=== PATIENT | male | born 1945 | race Caucasian/White ===

== ENCOUNTER → 2018-02-04 15:28 | Outpatient (CLI) | payer MEDICARE, OTHER, SELFPAY | PROVIDERS: PCP Internal Medicine; Visit Provider Family Medicine Sports Medicine | DX: R53.83 Other fatigue (principal); M62.50 Muscle wasting and atrophy, not elsewhere classified, unspecified site | CPT/HCPCS: 36415; 84403 ==

== ENCOUNTER → 2018-12-23 09:14 | Outpatient (CLI) | payer MEDICARE, OTHER, SELFPAY ==
[2018-12-23 11:12] LABS: Alanine Aminotransferase 37 IU/L (21-72); Aspartate Aminotransferase 41 IU/L (17-59); BUN Creatinine Ratio 23.6 (6-22); Blood Urea Nitrogen 26 mg/dL (9-20); Calcium 9.8 mg/dL (8.4-10.2); Carbon Dioxide 28 mmol/L (22-32); Chloride 101 mmol/L (98-107); Cholesterol 193 mg/dL (140-199); Estimated Glomerular Filt Rate > 60.0 mL/min (>60); Glucose 106 mg/dL (80-110); HDL Cholesterol 80 mg/dL (40-60); HEMOLYSIS < 15 (0-50); LDL Cholesterol Calculated 102 mg/dL (<100); Potassium 4.4 mmol/L (3.4-5.1); Sodium 140 mmol/L (137-145); Triglycerides 53 mg/dL (35-150)
== END ==
PROVIDERS: PCP Internal Medicine; Visit Provider Internal Medicine
DX: I10 Essential (primary) hypertension (principal); E78.00 Pure hypercholesterolemia, unspecified
CPT/HCPCS: 36415; 80048; 80061; 84450; 84460

== ENCOUNTER → 2019-03-04 08:00 | Outpatient (CLI) | payer MEDICARE, OTHER, SELFPAY ==
--- NOTE | 2019-03-04 | DI.MRI.S_ITS ---
PROCEDURE: MR CERVICAL SPINE WO CON INDICATIONS: Neck pain radiating into left scapula TECHNIQUE: Noncontrast sagittal T1 spin echo and T2 fast spin echo, sagittal STIR, foraminal oblique sagittal T2 fast spin echo, and axial gradient echo or T2 fast spin echo through the cervical spine. COMPARISON: None. FINDINGS: Image quality: Diagnostic, with note made of motion artifact. Alignment and Curvature: There is overall mild straightening of the normal cervical lordosis. Bone Marrow: Marrow demonstrates normal overall signal. Spinal Cord: Visualized spinal cord has normal size and signal. No cerebellar tonsillar herniation. Paraspinous Soft Tissues: No paravertebral masses. Prevertebral soft tissues are normal in thickness. C2-C3: Mild loss of disc height is seen. Loss of disc signal is seen. A mild degree of generalized disc osteophyte complex is seen. There is mild to moderate right-sided and mild left-sided facet hypertrophy seen. There is moderate right-sided and mild to moderate left-sided neural foraminal narrowing seen. No significant central canal narrowing is seen. C3-C4: Mild loss of disc height is seen. Loss of disc signal is seen. Moderate generalized disc osteophyte complex is seen. There is a central/right disc osteophyte protrusion seen. At least moderate facet hypertrophy is seen, left worse than right. There is moderate to severe bilateral neural foraminal narrowing seen at this level. Moderate to severe central canal narrowing is seen, with associated mass effect upon the ventral spinal cord. C4-C5: The disc height is well-preserved. Loss of disc signal is seen at this level. Moderate disc osteophyte complex is seen, which is eccentric to the left. There is moderate left-sided and moderate right-sided facet hypertrophy seen. There is at least moderate right-sided and moderate to severe left-sided neural foraminal narrowing seen. Moderate central canal narrowing is seen, with associated minimal mass effect upon the ventral spinal cord. C5-C6: Moderate to severe loss of disc height and disc signal are seen. Moderate to prominent disc osteophyte complex is seen. Bridging endplate osteophytes are seen. Uncovertebral joint hypertrophy is seen at this level. Posteriorly projected endplate osteophytes are seen. Moderate facet joint hypertrophy is seen. Moderate to severe bilateral neural foraminal narrowing is seen, left worse than right. Moderate to severe central canal narrowing is seen, with associated mass effect upon the ventral spinal cord. C6-C7: Moderate to severe loss of disc height and disc signal are seen. There is at least moderate disc osteophyte complex seen. Uncovertebral joint hypertrophy is seen at this level. There is moderate right-sided and mild to moderate left-sided facet hypertrophy seen. Moderate to severe bilateral neural foraminal narrowing can be seen at this level. There is moderate to severe central canal narrowing seen, with associated mass effect upon the ventral spinal cord. C7-T1: Moderate loss of disc height is seen. Loss of disc signal is seen. A mild degree of generalized disc osteophyte complex is seen. Rvlo-vh-[id number] facet hypertrophy is seen. There is moderate left-sided and mild to moderate right-sided neural foraminal narrowing seen. Gzpo-ap-[id number] central canal narrowing is seen. IMPRESSION: Multiple levels of cervical spine degenerative change are seen, which are most prominent at C5-C6 and C6-C7. Dictated by: Kyle Gonsalves M.D. on 03/04/2019 at 8:46 Approved by: Kyle Gonsalves M.D. on 03/04/2019 at 8:51
== END ==
PROVIDERS: PCP Internal Medicine; Visit Provider Physical Medicine & Rehabilitation
DX: M47.22 Other spondylosis with radiculopathy, cervical region (principal)
CPT/HCPCS: 72141

== ENCOUNTER → 2019-10-15 15:25 | Outpatient (ROUT) | payer MEDICARE, OTHER, SELFPAY ==
[2019-10-15 15:54] LABS: Alanine Aminotransferase 27 IU/L (<50); Albumin 4.6 g/dL (3.5-5.0); Albumin Globulin Ratio 1.8 (1.0-2.8); Alkaline Phosphatase 76 U/L (38-126); Aspartate Aminotransferase 43 IU/L (17-59); Bilirubin Total 0.6 mg/dL (0.2-1.3); Blood Urea Nitrogen 22 mg/dL (9-20); Calcium 9.8 mg/dL (8.4-10.2); Carbon Dioxide 26 mmol/L (22-32); Chloride 104 mmol/L (98-107); Cholesterol 198 mg/dL (140-199); Estimated Glomerular Filt Rate > 60.0 mL/min (>60); Globulin 2.5 g/dL (1.7-4.1); Glucose 87 mg/dL (80-110); HDL Cholesterol 70 mg/dL (40-60); HEMOLYSIS < 15 (0-50); LDL Cholesterol Calculated 100 mg/dL (<100); Potassium 4.3 mmol/L (3.4-5.1); Sodium 138 mmol/L (137-145); Total Protein 7.1 g/dL (6.3-8.2); Triglycerides 138 mg/dL (35-150)
[2019-10-16 06:36] LABS: PSA Free % 21.5 % (.); PSA, Total 2.6 ng/mL (0.0-4.0)
== END ==
PROVIDERS: PCP Internal Medicine; Visit Provider Internal Medicine
DX: Z12.5 Encounter for screening for malignant neoplasm of prostate (principal); E78.5 Hyperlipidemia, unspecified; I10 Essential (primary) hypertension
CPT/HCPCS: 80053; 80061; 84153; 84154

== ENCOUNTER → 2020-04-26 08:56 | Outpatient (CLI) | payer MEDICARE, OTHER, SELFPAY ==
[2020-04-26 10:47] LABS: Alanine Aminotransferase 20 IU/L (<50); Albumin 4.3 g/dL (3.5-5.0); Albumin Globulin Ratio 1.8 (1.0-2.8); Alkaline Phosphatase 69 U/L (38-126); Aspartate Aminotransferase 29 IU/L (17-59); BUN Creatinine Ratio 18.2 (6-22); Bilirubin Total 0.8 mg/dL (0.2-1.3); Blood Urea Nitrogen 20 mg/dL (9-20); Calcium 9.7 mg/dL (8.4-10.2); Carbon Dioxide 32 mmol/L (22-32); Chloride 103 mmol/L (98-107); Cholesterol 174 mg/dL (140-199); Estimated Glomerular Filt Rate > 60.0 mL/min (>60); Globulin 2.4 g/dL (1.7-4.1); Glucose 94 mg/dL (80-110); HDL Cholesterol 72 mg/dL (40-60); HEMOLYSIS < 15 (0-50); LDL Cholesterol Calculated 85 mg/dL (<100); Potassium 4.9 mmol/L (3.4-5.1); Sodium 138 mmol/L (137-145); Total Protein 6.7 g/dL (6.3-8.2); Triglycerides 84 mg/dL (35-150)
[2020-04-26 11:17] LABS: Prostate Specific Antigen Scrn 3.64 ng/mL (0.1-4.0)
== END ==
PROVIDERS: PCP Family Medicine; Referring Provider Family Medicine; Visit Provider Family Medicine
DX: Z00.00 Encounter for general adult medical examination without abnormal findings (principal); Z12.5 Encounter for screening for malignant neoplasm of prostate; Z13.220 Encounter for screening for lipoid disorders; Z13.228 Encounter for screening for other metabolic disorders; E78.5 Hyperlipidemia, unspecified; I10 Essential (primary) hypertension; N40.0 Benign prostatic hyperplasia without lower urinary tract symptoms
CPT/HCPCS: 36415; 80053; 80061; G0103

== ENCOUNTER → 2021-02-22 09:07 | Outpatient (CLI) | payer MEDICARE, OTHER, SELFPAY ==
[2021-02-22 10:28] LABS: Alanine Aminotransferase 26 IU/L (<50); Albumin 4.6 g/dL (3.5-5.0); Albumin Globulin Ratio 1.7 (1.0-2.8); Alkaline Phosphatase 65 U/L (38-126); Aspartate Aminotransferase 39 IU/L (17-59); BUN Creatinine Ratio 19.7 (6-22); Bilirubin Total 0.7 mg/dL (0.2-1.3); Blood Urea Nitrogen 23 mg/dL (9-20); Calcium 9.5 mg/dL (8.4-10.2); Carbon Dioxide 28 mmol/L (22-32); Chloride 102 mmol/L (98-107); Estimated Glomerular Filt Rate > 60.0 mL/min (>60); Globulin 2.7 g/dL (1.7-4.1); Glucose 95 mg/dL (80-110); HEMOLYSIS < 15 (0-50); Potassium 4.3 mmol/L (3.4-5.1); Sodium 138 mmol/L (137-145); Total Protein 7.3 g/dL (6.3-8.2)
== END ==
PROVIDERS: PCP Family Medicine; Referring Provider Family Medicine; Visit Provider Family Medicine
DX: I10 Essential (primary) hypertension (principal)
CPT/HCPCS: 36415; 80053

== ENCOUNTER → 2022-03-22 09:41 | Outpatient (CLI) | payer MEDICARE, OTHER, SELFPAY ==
[2022-03-22 10:36] LABS: Add Manual Diff / Slide Review NO; Basophils Absolute Auto 0 /uL (0-100); Basophils Percent Auto 0.9 % (0-2); Eosinophils Absolute Auto 100 /uL (0-450); Eosinophils Percent Auto 2.5 % (2-4); Hematocrit 37.9 % (41-53); Hemoglobin 13.1 g/dL (13.5-17.5); Lymphocytes Absolute Auto 1000 /uL (1100-4500); Lymphocytes Percent Auto 20.6 % (25-40); Mean Corpuscular HGB Conc 34.4 % (30-36); Mean Corpuscular Hemoglobin 32.8 PG (26-34); Mean Corpuscular Volume 95.2 fL (80-100); Monocytes Absolute Auto 500 /uL (0-900); Monocytes Percent Auto 9.8 % (3-14); Neutrophils Absolute Auto 3200 /uL (1500-7000); Neutrophils Percent Auto 66.2 % (50-75); Platelet Count 237 X10^3/uL (150-400); Red Blood Cell Count 3.98 X10^6/uL (4.5-5.9); White Blood Cell Count 4.8 X10^3/uL (4.5-11.0)
[2022-03-22 10:51] LABS: Hemoglobin A1C% w Est Avg Glu 5.4 % (4.0-6.0)
[2022-03-22 11:10] LABS: Alanine Aminotransferase 27 IU/L (<50); Albumin 4.3 g/dL (3.5-5.0); Albumin Globulin Ratio 1.4 (1.0-2.8); Alkaline Phosphatase 59 U/L (38-126); Aspartate Aminotransferase 30 IU/L (17-59); BUN Creatinine Ratio 15.9 (6-22); Bilirubin Total 0.4 mg/dL (0.2-1.3); Blood Urea Nitrogen 17 mg/dL (9-20); Calcium 8.9 mg/dL (8.4-10.2); Carbon Dioxide 25 mmol/L (22-32); Chloride 105 mmol/L (98-107); Cholesterol 172 mg/dL (140-199); Estimated Glomerular Filt Rate > 60 mL/min (>60); Glucose 98 mg/dL (80-110); HDL Cholesterol 61 mg/dL (40-60); HEMOLYSIS < 15 (0-50); LDL Cholesterol Calculated 101 mg/dL (<100); Potassium 4.2 mmol/L (3.4-5.1); Sodium 139 mmol/L (137-145); Total Protein 7.3 g/dL (6.3-8.2); Triglycerides 51 mg/dL (35-150)
[2022-03-22 11:26] LABS: TSH w/ Reflex to FT4 4.76 uIU/mL (0.47-4.68)
[2022-03-22 12:04] LABS: Free T4, Direct Thyroxine 0.97 ng/dL (0.78-2.19)
== END ==
PROVIDERS: PCP Family Medicine; Referring Provider Family Medicine; Visit Provider Family Medicine
DX: E78.2 Mixed hyperlipidemia (principal); Z13.9 Encounter for screening, unspecified; I10 Essential (primary) hypertension; N40.0 Benign prostatic hyperplasia without lower urinary tract symptoms; Z00.00 Encounter for general adult medical examination without abnormal findings
CPT/HCPCS: 36415; 80053; 80061; 83036; 84439; 84443; 85025

== ENCOUNTER → 2022-11-06 08:14 | Outpatient (CLI) | payer MEDICARE, OTHER, SELFPAY ==
[2022-11-06 09:04] LABS: Add Manual Diff / Slide Review NO; Basophils Absolute Auto 100 /uL (0-100); Eosinophils Absolute Auto 200 /uL (0-450); Eosinophils Percent Auto 3.1 % (2-4); Hematocrit 38.7 % (41-53); Hemoglobin 13.4 g/dL (13.5-17.5); Lymphocytes Absolute Auto 1300 /uL (1100-4500); Lymphocytes Percent Auto 24.6 % (25-40); Mean Corpuscular HGB Conc 34.7 % (30-36); Mean Corpuscular Hemoglobin 33.6 PG (26-34); Mean Corpuscular Volume 96.8 fL (80-100); Monocytes Absolute Auto 700 /uL (0-900); Neutrophils Absolute Auto 3100 /uL (1500-7000); Neutrophils Percent Auto 58.3 % (50-75); Platelet Count 256 X10^3/uL (150-400); Red Cell Distribution Width 12.9 % (11.6-14.8); White Blood Cell Count 5.4 X10^3/uL (4.5-11.0)
[2022-11-06 09:12] LABS: Alanine Aminotransferase 29 IU/L (<50); Albumin 4.3 g/dL (3.5-5.0); Albumin Globulin Ratio 1.7 (1.0-2.8); Alkaline Phosphatase 68 U/L (38-126); Aspartate Aminotransferase 36 IU/L (17-59); BUN Creatinine Ratio 22.5 (6-22); Bilirubin Total 0.4 mg/dL (0.2-1.3); Blood Urea Nitrogen 27 mg/dL (9-20); Calcium 9.2 mg/dL (8.4-10.2); Carbon Dioxide 25 mmol/L (22-32); Chloride 103 mmol/L (98-107); Cholesterol 180 mg/dL (140-199); Estimated Glomerular Filt Rate > 60 mL/min (>60); Globulin 2.6 g/dL (1.7-4.1); Glucose 115 mg/dL (80-110); HDL Cholesterol 60 mg/dL (40-60); HEMOLYSIS < 15 (0-50); LDL Cholesterol Calculated 104 mg/dL (<100); Potassium 4.7 mmol/L (3.4-5.1); Sodium 137 mmol/L (137-145); Total Protein 6.9 g/dL (6.3-8.2); Triglycerides 80 mg/dL (35-150)
[2022-11-06 09:22] LABS: Free T4, Direct Thyroxine 1.08 ng/dL (0.78-2.19)
[2022-11-06 09:36] LABS: Thyroid Stimulating Hormone 2.06 uIU/mL (0.47-4.68)
== END ==
PROVIDERS: PCP Family Medicine; Referring Provider Family Medicine; Visit Provider Family Medicine
DX: E03.9 Hypothyroidism, unspecified (principal); E78.5 Hyperlipidemia, unspecified; I10 Essential (primary) hypertension; N40.0 Benign prostatic hyperplasia without lower urinary tract symptoms
CPT/HCPCS: 36415; 80053; 80061; 84439; 84443; 85025

== ENCOUNTER → 2022-11-27 09:28 | Outpatient (CLI) | payer MEDICARE, OTHER, SELFPAY ==
[2022-11-27 10:58] LABS: Reticulocyte Count, Percent 0.8 % (0.9-2.6)
[2022-11-27 11:12] LABS: Hemoglobin A1C% w Est Avg Glu 5.1 % (4.0-6.0)
[2022-11-27 11:31] LABS: HEMOLYSIS < 15 (0-50); Iron 86 ug/dL (49-181)
[2022-11-27 11:42] LABS: Percent Iron Saturation 26 % (20-50); Total Iron Binding Capacity 328 ug/dL (261-462); Transferrin 245 mg/dL (206-381)
[2022-11-27 12:10] LABS: Vitamin B12 556 pg/mL (239-931)
[2022-11-29 07:36] LABS: Fructosamine 231 umol/L (0-285)
[2022-12-02 12:46] LABS: Percent Free Testosterone 2.07 % (1.50-4.20); Testosterone Free 9.65 ng/dL (5.00-21.00); Testosterone Total 466.1 ng/dL (264.0-916.0)
== END ==
PROVIDERS: PCP Family Medicine; Referring Provider Family Medicine; Visit Provider Family Medicine
DX: R73.03 Prediabetes (principal); E03.9 Hypothyroidism, unspecified; E78.5 Hyperlipidemia, unspecified; I10 Essential (primary) hypertension; N40.0 Benign prostatic hyperplasia without lower urinary tract symptoms; R53.83 Other fatigue
CPT/HCPCS: 36415; 82607; 82985; 83036; 83540; 83550; 84402; 84403; 85045

== ENCOUNTER → 2023-04-26 09:00 | Outpatient (CLI) | payer MEDICARE, OTHER, SELFPAY ==
[2023-04-26 10:19] LABS: Add Manual Diff / Slide Review NO; Basophils Absolute Auto 100 /uL (0-100); Basophils Percent Auto 1.3 % (0-2); Eosinophils Absolute Auto 100 /uL (0-450); Eosinophils Percent Auto 2.7 % (2-4); Hematocrit 36.8 % (41-53); Hemoglobin 12.3 g/dL (13.5-17.5); Lymphocytes Absolute Auto 1100 /uL (1100-4500); Mean Corpuscular HGB Conc 33.3 % (30-36); Mean Corpuscular Hemoglobin 31.3 PG (26-34); Mean Corpuscular Volume 94.1 fL (80-100); Monocytes Absolute Auto 600 /uL (0-900); Monocytes Percent Auto 11.8 % (3-14); Neutrophils Absolute Auto 3200 /uL (1500-7000); Neutrophils Percent Auto 62.2 % (50-75); Platelet Count 246 X10^3/uL (150-400); Red Blood Cell Count 3.91 X10^6/uL (4.5-5.9); Red Cell Distribution Width 15.1 % (11.6-14.8); White Blood Cell Count 5.1 X10^3/uL (4.5-11.0)
== END ==
PROVIDERS: PCP Family Medicine; Referring Provider Family Medicine; Visit Provider Family Medicine
DX: D64.9 Anemia, unspecified (principal)
CPT/HCPCS: 36415; 85025; 85045

== ENCOUNTER → 2023-07-23 10:34 | Outpatient (CLI) | payer MEDICARE, OTHER, SELFPAY ==
--- NOTE | 2023-07-23 10:43 | DI.MRI.S_ITS ---
PROCEDURE: MR LUMBAR SPINE WO CON INDICATIONS: Spinal stenosis, lumbar region without neurogenic TECHNIQUE: Noncontrast sagittal T1 spin echo and T2 fast echo, sagittal STIR, and T2 fast spin echo through the lumbar spine. In cases with scoliosis, additional coronal T2 fast spin echo may be performed. COMPARISON: [facility], MR, MR LUMBAR SPINE WITHOUT CONTRAST, 08/11/2021, 12:20. FINDINGS: Image quality: Excellent. Alignment and Curvature: 4 mm anterolisthesis of L3 on L4. 4 mm retrolisthesis of L5 on S1. Bone Marrow: Marrow is of normal overall signal. No acute vertebral body compression fractures. Spinal Cord: Conus medullaris terminates at the L1-L2 level. Visualized cord demonstrates normal signal and size. Paraspinous Soft Tissues: No paravertebral masses. T12-L1: No significant change. Disc bulge. No canal stenosis or foraminal stenosis. L1-L2: No significant change. Disc bulge. Mild facet hypertrophy. No canal stenosis or foraminal stenosis. L2-L3: Slight interval progression. Disc bulge. Increased facet hypertrophy with development of a small anterior medially directed facet joint cyst off the right facet which narrows the right lateral recess and deviates right-sided nerve root structures slightly. Reference axial T2 image 15 of series 5. No central canal stenosis. Mild right foraminal stenosis. L3-L4: Slight interval progression. Increased disc bulge/superimposed broad-based disc protrusion. Prominent facet hypertrophy. Posterior epidural lipomatosis. Anterolisthesis of L3 on L4. Severe canal stenosis. Reference axial T2 image 21 of series 5. Qfug-[id number] bilateral foraminal stenosis. L4-L5: Slight interval increase in disc bulge. Facet hypertrophy. Mild canal stenosis. Bilateral lateral recess stenosis. Dkjc-wb-[id number] right foraminal narrowing and moderate left foraminal narrowing with mild flattening deformity on the exiting left L4 nerve root. L5-S1: Stable findings. Severe disc height loss. Diffuse posterior disc post osteophyte. There is mild posterior deviation of the left S1 nerve root in the left lateral recess. Bilateral facet hypertrophy. No central canal stenosis. Moderate bilateral foraminal stenosis with flattening deformity on the exiting bilateral L5 nerve roots. IMPRESSION: 1. Underlying multilevel facet arthropathy. 2. There is interval progression at L2-L3 and L3-L4 and L4-L5. 3. Canal stenosis is severe at L3-L4 and mild at L4-L5. 4. A facet joint cyst off of the right facet at L2-L3 has developed, resulting in right lateral recess stenosis at that level. 5. Multilevel foraminal narrowing as described above. Findings include moderate left foraminal narrowing at L4-L5 and moderate bilateral foraminal narrowing at L5-S1. Dictated by: Darell Carcamo M.D. on 07/23/2023 at 12:38 Approved by: Darell Carcamo M.D. on 07/23/2023 at 12:56
== END ==
LOC: MRI 10:35
PROVIDERS: PCP Family Medicine; Referring Provider Student in an Organized Health Care Education/Training Program; Visit Provider Student in an Organized Health Care Education/Training Program
DX: S33.5XXA Sprain of ligaments of lumbar spine, initial encounter (principal); M48.061 Spinal stenosis, lumbar region without neurogenic claudication; M48.07 Spinal stenosis, lumbosacral region; M47.816 Spondylosis without myelopathy or radiculopathy, lumbar region; M47.817 Spondylosis without myelopathy or radiculopathy, lumbosacral region; M53.86 Other specified dorsopathies, lumbar region; X58.XXXA Exposure to other specified factors, initial encounter
CPT/HCPCS: 72148

== ENCOUNTER → 2023-08-09 09:10 | Outpatient (CLI) | payer MEDICARE, OTHER, SELFPAY ==
--- NOTE | 2023-08-09 | DI.RAD.S_ITS ---
PROCEDURE: XR LUMBAR SPINE MIN 4V INDICATIONS: LOW BACK PAIN TECHNIQUE: 5 views of the lumbar spine acquired, including flexion and extension views. COMPARISON: None. FINDINGS: Bones: 5 nonrib-bearing vertebrae are present. Grade 1 anterolisthesis of L3 on L4. Straightening of the normal lumbar lordosis. There is multilevel facet arthropathy, worse at L4-5 and L5-S1. Multilevel disc height loss with degenerative endplate changes and spurring is present. This is most pronounced at L5-S1. No vertebral body compression fractures. No suspicious bony lesions. Soft tissues: Overlying bowel gas pattern is normal. No suspicious soft tissue calcifications. Atherosclerotic vascular calcifications. Flexion/extension: There is limited range of motion, with preserved alignment. IMPRESSION: Multilevel degenerative changes of the lumbar spine with limited range of motion. Dictated by: Bethel Hall M.D. on 08/09/2023 at 10:38 Approved by: Bethel Hall M.D. on 08/09/2023 at 10:39
--- NOTE | 2023-08-09 09:12 | DI.CT.S_ITS ---
PROCEDURE: CT LUMBAR SPINE WO CON INDICATIONS: Spinal stenosis, lumbar region TECHNIQUE: Noncontrast 3 mm thick sections acquired from the T12 level to the sacrum. Sagittal and coronal reformats were constructed. For radiation dose reduction, the following was used: automated exposure control. COMPARISON: [facility], MR, MR LUMBAR SPINE WO CON, 07/23/2023, 10:43. FINDINGS: Image quality: Excellent. Bones: Mild anterolisthesis of L3 on L4. Mild retrolisthesis of L5 on S1. There is multilevel facet arthropathy, worse at L4-5 and L5-S1. Multilevel disc height loss with degenerative endplate changes and spurring is present. This is most pronounced at L5-S1 with severe disc height loss and vacuum disc phenomena. Degenerative changes result in severe central canal stenosis at L3-L4. At least moderate bilateral osseous neural foraminal stenosis at L5-S1. No acute vertebral body compression fractures. No suspicious lytic or blastic bony lesions. No pars defects. Soft tissues: No retroperitoneal masses or hematomas. Visualized aorta is normal in caliber. Atherosclerotic vascular calcifications. Diverticulosis within the visualized colon without evidence of diverticulitis. IMPRESSION: Multilevel degenerative changes of the lumbar spine are redemonstrated. Severe central canal stenosis at L3-L4. At least moderate bilateral osseous neural foraminal stenosis at L5-S1. Dictated by: Bethel Hall M.D. on 08/09/2023 at 11:24 Approved by: Bethel Hall M.D. on 08/09/2023 at 11:29
== END ==
PROVIDERS: PCP Family Medicine; Referring Provider Neurological Surgery; Visit Provider Neurological Surgery
DX: M48.062 Spinal stenosis, lumbar region with neurogenic claudication (principal); M48.07 Spinal stenosis, lumbosacral region; M47.816 Spondylosis without myelopathy or radiculopathy, lumbar region; M47.817 Spondylosis without myelopathy or radiculopathy, lumbosacral region; K57.90 Diverticulosis of intestine, part unspecified, without perforation or abscess without bleeding; I70.90 Unspecified atherosclerosis
CPT/HCPCS: 72110; 72131

== ENCOUNTER → 2023-09-05 07:46 | Outpatient (CLI) | payer MEDICARE, OTHER, SELFPAY ==
[2023-09-05 08:59] LABS: Add Manual Diff / Slide Review NO; Basophils Absolute Auto 100 /uL (0-100); Basophils Percent Auto 1.3 % (0-2); Eosinophils Absolute Auto 200 /uL (0-450); Eosinophils Percent Auto 3.3 % (2-4); Hematocrit 37.5 % (41-53); Hemoglobin 12.9 g/dL (13.5-17.5); Lymphocytes Absolute Auto 1400 /uL (1100-4500); Lymphocytes Percent Auto 27.7 % (25-40); Mean Corpuscular HGB Conc 34.4 % (30-36); Mean Corpuscular Hemoglobin 33.1 PG (26-34); Mean Corpuscular Volume 96.2 fL (80-100); Monocytes Absolute Auto 500 /uL (0-900); Monocytes Percent Auto 10.3 % (3-14); Neutrophils Absolute Auto 2800 /uL (1500-7000); Neutrophils Percent Auto 57.4 % (50-75); Platelet Count 261 X10^3/uL (150-400); Red Cell Distribution Width 13.9 % (11.6-14.8); White Blood Cell Count 4.9 X10^3/uL (4.5-11.0)
[2023-09-05 09:00] LABS: Reticulocyte Count, Percent 0.7 % (0.9-2.6)
[2023-09-05 09:04] LABS: Appearance Urine UA CLEAR; Bilirubin Urine UA NEGATIVE (NEGATIVE); Color Urine UA YELLOW; Glucose Urine UA NEGATIVE (Negative); Ketones Urine UA TRACE (NEGATIVE); Leukocyte Esterase Urine UA NEGATIVE (NEGATIVE); Nitrite Urine UA NEGATIVE (Negative); Occult Blood Urine UA NEGATIVE (Negative); Protein Urine UA NEGATIVE (Negative); Urobilinogen Urine UA 0.2 E.U./dL (0.2); pH Urine UA 5.5 (4.5-8.0)
[2023-09-05 09:12] LABS: Bacteria Urine None Seen; Culture Indicated Urine Cult Not Indicated; RBC Urine None Seen (0-5/HPF); Squamous Epithelial Cell Urine None Seen (0-5/HPF); Urine Volume 10mL (spun); WBC Urine 0-1/HPF (0-5/HPF)
[2023-09-05 09:21] LABS: HEMOLYSIS < 15 (0-50); Iron 80 ug/dL (49-181)
[2023-09-05 09:35] LABS: Alanine Aminotransferase 35 IU/L (<50); Albumin 4.6 g/dL (3.5-5.0); Albumin Globulin Ratio 1.8 (1.0-2.8); Alkaline Phosphatase 60 U/L (38-126); Aspartate Aminotransferase 45 IU/L (17-59); BUN Creatinine Ratio 22.9 (6-22); Bilirubin Total 0.5 mg/dL (0.2-1.3); Blood Urea Nitrogen 24 mg/dL (9-20); Calcium 8.9 mg/dL (8.4-10.2); Carbon Dioxide 25 mmol/L (22-32); Chloride 105 mmol/L (98-107); Estimated Glomerular Filt Rate > 60 mL/min (>60); Globulin 2.5 g/dL (1.7-4.1); Glucose 95 mg/dL (80-110); HEMOLYSIS < 15 (0-50); Potassium 4.4 mmol/L (3.4-5.1); Sodium 137 mmol/L (137-145); Total Protein 7.1 g/dL (6.3-8.2)
[2023-09-05 09:36] LABS: Percent Iron Saturation 26 % (20-50); Total Iron Binding Capacity 313 ug/dL (261-462); Transferrin 243 mg/dL (206-381)
[2023-09-05 09:54] LABS: TSH w/ Reflex to FT4 2.22 uIU/mL (0.47-4.68)
[2023-09-05 10:26] LABS: INR 0.9 (0.9-1.3); Prothrombin Time 10.5 SECONDS (9.4-12.5)
[2023-09-05 10:29] LABS: PTT Partial Thromboplastin Tim 35 SECONDS (25.1-36.5)
[2023-09-05 10:39] LABS: Folate 14.5 ng/mL (2.76-20.0); Vitamin B12 372 pg/mL (239-931)
== END ==
PROVIDERS: PCP Family Medicine; Referring Provider Nurse Practitioner Critical Care Medicine; Visit Provider Nurse Practitioner Critical Care Medicine
DX: M48.062 Spinal stenosis, lumbar region with neurogenic claudication (principal); E03.9 Hypothyroidism, unspecified; N40.0 Benign prostatic hyperplasia without lower urinary tract symptoms; E78.5 Hyperlipidemia, unspecified; I10 Essential (primary) hypertension; D64.9 Anemia, unspecified
CPT/HCPCS: 36415; 80053; 81001; 82607; 82746; 83540; 83550; 84443; 85025; 85045; 85610; 85730; 86850; 86900; 86901

== ENCOUNTER → 2023-11-28 10:08 | Outpatient (CLI) | payer MEDICARE, OTHER, SELFPAY ==
--- NOTE | 2023-11-28 10:12 | DI.RAD.S_ITS ---
PROCEDURE: XR LUMBAR SPINE 2-3V INDICATIONS: LUMBAR PAIN/surgical aftercare TECHNIQUE: 3 views of the lumbar spine were acquired. COMPARISON: [facility], MR, MR LUMBAR SPINE WO CON, 07/23/2023, 10:43. [facility], CR, XR LUMBAR SPINE MIN 4V, 08/09/2023, 8:24. FINDINGS: Bones: 5 [id number]-[id number] vertebrae are present. Surgical changes of L3-L4 posterior lumbar fusion, partial laminectomy changes. And intervertebral spacer present; spacer is slightly oriented to the left of midline of questionable clinical significance. No perihardware lucency can be seen. No fracture or subluxation seen. Diffuse degenerative disc disease also noted. Soft tissues: Bowel gas pattern is unremarkable. Atherosclerotic calcifications of the aorta noted. Phleboliths project over the pelvis. IMPRESSION: Postop changes of the lumbar spine as noted above Dictated by: Carlos Alberto Wesley M.D. on 11/28/2023 at 15:04 Approved by: Carlos Alberto Wesley M.D. on 11/28/2023 at 15:14
== END ==
PROVIDERS: PCP Family Medicine
DX: M51.16 Intervertebral disc disorders with radiculopathy, lumbar region (principal); M48.062 Spinal stenosis, lumbar region with neurogenic claudication; Z48.811 Encounter for surgical aftercare following surgery on the nervous system; Z98.1 Arthrodesis status
CPT/HCPCS: 72100

== ENCOUNTER → 2023-11-29 10:49 | Outpatient (CLI) | payer MEDICARE, OTHER, SELFPAY | PROVIDERS: PCP Family Medicine; Referring Provider Nurse Practitioner Family; Visit Provider Nurse Practitioner Family | DX: Z86.19 Personal history of other infectious and parasitic diseases (principal) | CPT/HCPCS: 87045 ==

== ENCOUNTER → 2023-12-07 14:50 | Outpatient (CLI) | payer MEDICARE, OTHER, SELFPAY | LOC: LAB 14:51 | PROVIDERS: PCP Family Medicine; Referring Provider Nurse Practitioner Family; Visit Provider Nurse Practitioner Family | DX: R19.7 Diarrhea, unspecified (principal) | CPT/HCPCS: 87177 ==

== ENCOUNTER → 2024-02-14 08:55 | Outpatient (CLI) | payer MEDICARE, OTHER, SELFPAY | PROVIDERS: PCP Family Medicine; Referring Provider Urology; Visit Provider Urology | DX: N40.0 Benign prostatic hyperplasia without lower urinary tract symptoms (principal) | CPT/HCPCS: 36415; 84153 ==

== ENCOUNTER → 2024-04-17 11:18 | Outpatient (CLI) | payer MEDICARE, OTHER, SELFPAY | PROVIDERS: Physician Assistant; PCP Family Medicine; Referring Provider Family Medicine; Visit Provider Family Medicine | DX: R19.5 Other fecal abnormalities (principal) | CPT/HCPCS: 87177; 87329 ==

== ENCOUNTER → 2024-06-25 10:55 | Outpatient (CLI) | payer MEDICARE, OTHER, SELFPAY ==
[2024-06-25 12:08] LABS: Hematocrit 38.7 % (41-53); Mean Corpuscular HGB Conc 33.7 % (30-36); Mean Corpuscular Hemoglobin 32.2 PG (26-34); Mean Corpuscular Volume 95.4 fL (80-100); Platelet Count 259 X10^3/uL (150-400); Red Blood Cell Count 4.05 X10^6/uL (4.5-5.9); White Blood Cell Count 4.8 X10^3/uL (4.5-11.0)
[2024-06-25 12:15] LABS: Hemoglobin A1C% w Est Avg Glu 5.1 % (4.0-6.0)
[2024-06-25 12:38] LABS: HEMOLYSIS < 15 (0-50)
[2024-06-25 12:46] LABS: Alanine Aminotransferase 27 IU/L (<50); Albumin 4.5 g/dL (3.5-5.0); Albumin Globulin Ratio 1.6 (1.0-2.8); Alkaline Phosphatase 61 U/L (38-126); Aspartate Aminotransferase 47 IU/L (17-59); BUN Creatinine Ratio 17.1 (6-22); Bilirubin Total 0.6 mg/dL (0.2-1.3); Blood Urea Nitrogen 19 mg/dL (9-20); Calcium 9.5 mg/dL (8.4-10.2); Carbon Dioxide 26 mmol/L (22-32); Chloride 103 mmol/L (98-107); Cholesterol 164 mg/dL (140-199); Estimated Glomerular Filt Rate > 60 mL/min (>60); Globulin 2.8 g/dL (1.7-4.1); Glucose 100 mg/dL (80-110); HDL Cholesterol 60 mg/dL (40-60); HEMOLYSIS < 15 (0-50); Iron 97 ug/dL (49-181); LDL Cholesterol Calculated 81 mg/dL (<100); Potassium 4.2 mmol/L (3.4-5.1); Sodium 135 mmol/L (137-145); Total Protein 7.3 g/dL (6.3-8.2); Triglycerides 113 mg/dL (35-150)
[2024-06-25 12:57] LABS: Percent Iron Saturation 33 % (20-50); Total Iron Binding Capacity 298 ug/dL (261-462); Transferrin 246 mg/dL (206-381)
[2024-06-25 13:16] LABS: TSH w/ Reflex to FT4 2.13 uIU/mL (0.47-4.68)
[2024-06-25 13:17] LABS: Prostate Specific Antigen 5.29 ng/mL (0.10-4.00)
[2024-06-25 13:18] LABS: Ferritin 113 ng/mL (18-464)
[2024-06-25 13:33] LABS: Vitamin B12 Reflex MMA if <400 267 pg/mL (239-931)
[2024-06-28 15:36] LABS: Methylmalonic Acid,Serum 217 nmol/L (0-378)
[2024-06-28 16:08] LABS: C difficie Toxins A and B, EIA Negative (Negative)
== END ==
PROVIDERS: Physician Assistant; PCP Internal Medicine; Referring Provider Internal Medicine; Visit Provider Internal Medicine
DX: R97.20 Elevated prostate specific antigen [PSA] (principal); R73.01 Impaired fasting glucose; D64.9 Anemia, unspecified; E03.9 Hypothyroidism, unspecified; E78.2 Mixed hyperlipidemia; E53.8 Deficiency of other specified B group vitamins; K52.9 Noninfective gastroenteritis and colitis, unspecified
CPT/HCPCS: 36415; 80053; 80061; 82607; 82728; 83036; 83540; 83550; 83921; 84153; 84443; 85027; 87324

== ENCOUNTER → 2024-10-20 12:39 | Outpatient (CLI) | payer MEDICARE, OTHER, SELFPAY ==
[2024-10-20 14:16] LABS: Prostate Specific Antigen 6.49 ng/mL (0.10-4.00)
== END ==
PROVIDERS: PCP Internal Medicine; Referring Provider Urology; Visit Provider Urology
DX: C61 Malignant neoplasm of prostate (principal)
CPT/HCPCS: 36415; 84153

== ENCOUNTER → 2025-01-13 09:07 | Outpatient (CLI) | payer MEDICARE, OTHER, SELFPAY ==
[2025-01-13 10:58] LABS: Prostate Specific Antigen 6.93 ng/mL (0.10-4.00)
== END ==
PROVIDERS: PCP Internal Medicine; Referring Provider Urology; Visit Provider Urology
DX: C61 Malignant neoplasm of prostate (principal)
CPT/HCPCS: 36415; 84153

== ENCOUNTER → 2025-02-23 08:08 | Outpatient (CLI) | payer MEDICARE, OTHER, SELFPAY ==
--- NOTE | 2025-02-23 08:16 | DI.MRI.S_ITS ---
PROCEDURE: MR ELBOW LT W CON INDICATIONS: Chronic elbow pain, left TECHNIQUE: Noncontrast coronal proton density fast spin echo and T2 fast spin echo with fat saturation, axial and sagittal T1 spin echo and T2 fast spin echo with fat saturation through the elbow. COMPARISON: [facility], CR, XR ELBOW 3+ VIEWS LEFT, 01/22/2025, 7:51. FINDINGS: Quality: Adequate. Anterior: Biceps tendon: Intact. Bicipitoradial bursa: Nondistended. Median nerve: Unremarkable. Posterior: Triceps tendon: Metallic artifact at the anchor head obscures portions of the distal triceps tendon. Tendinosis of the distal triceps tendon. No retracted fibers. There is partial-thickness tearing of medial head fibers medially. Adjacent subcutaneous edema along the dorsal elbow. Olecranon bursa: Nondistended. Medial: Common flexor tendon origin: Small partial tear.. Ulnar collateral ligament: Intact. Ulnar nerve: Unremarkable. Lateral: Common extensor tendon: Large partial tear at the origin.. Radial collateral ligament: Partial tear of the proximal attachment. Lateral ulnar collateral ligament: Intact. Annular ligament: Intact. Joint: Small effusion. Cartilage: Cartilage loss and osteophyte formation at the medial ulnar trochlear articulation with associated volar ganglia on measuring 1.0 centimeter in greatest dimension. Bone: No fracture. Screw within the olecranon no bone marrow edema. Other: None. IMPRESSION: 1. Partial thickness partial width medial head triceps tendon tear which may be acute on chronic. Majority of the insertional triceps tendon fibers are likely intact to though obscured by artifact. 2. High-grade partial tear of common extensor tendon origin. 3. Grade 2 radial collateral ligament sprain. 4. Low-grade partial tear of common flexor tendon origin. 5. Advanced ulnotrochlear osteoarthritis. Dictated by: Tarik Gil M.D. on 02/23/2025 at 10:14 Approved by: Tarik Gil M.D. on 02/23/2025 at 10:26
== END ==
LOC: MRI 08:12
PROVIDERS: PCP Internal Medicine; Referring Provider Internal Medicine; Visit Provider Orthopaedic Surgery
DX: S46.112A Strain of muscle, fascia and tendon of long head of biceps, left arm, initial encounter (principal); S56.512A Strain of other extensor muscle, fascia and tendon at forearm level, left arm, initial encounter; S53.432A Radial collateral ligament sprain of left elbow, initial encounter; M19.022 Primary osteoarthritis, left elbow; S56.212A Strain of other flexor muscle, fascia and tendon at forearm level, left arm, initial encounter; M25.522 Pain in left elbow; T84.84XA Pain due to internal orthopedic prosthetic devices, implants and grafts, initial encounter
CPT/HCPCS: 73221